=== PATIENT | male | born 1960 | race African-American/Black ===

== ENCOUNTER 2021-08-05 05:52 | Inpatient (IN) ==
[2021-07-29 11:54] LABS: Basophils % 0.6 % (0.0-0.8); Eosinophils # 0.5 10*3/uL (0.0-0.87); Eosinophils % 8.1 % (0.00-10.9); Hematocrit 48.5 VOL% (42.0-52.0); Immature Granulocytes % 0.3 %; Immature Granulocytes Absolute 0.02 #; Lymphocytes # 1.5 10*3/uL (1.4-4.0); Lymphocytes % 23.5 % (21.2-54.2); Mean Corpuscular Volume 90.7 FL (87-102); Monocytes # 0.6 10*3/uL (0.11-0.8); Monocytes % 8.8 % (1.7-12.7); Neutrophils % 58.7 % (38.7-73.9); Platelet Count 213 T/CUMM (130-400); Red Blood Count 5.35 MC/CUMM (3.8-5.5); Red Cell Distribution Width 14.4 % (9.3-17.3); White Blood Count 6.5 T/CUMM (4-12)
[2021-07-29 12:25] LABS: Bilirubin,Total 1.1 MG/DL (0.20-1.00); Calcium 9.7 MG/DL (8.5-10.1); Osmolality,Calculated 278.8 MOS/KG (273-304); Potassium 4.2 MMOL/L (3.5-5.1); Total Protein 7.6 G/DL (6.4-8.2)
[2021-08-05] MEDS ORDERED: LIDOCAINE 2% 5 ML VIAL ONE (06:28)
[2021-08-05] MEDS ORDERED: fentaNYL 100 MCG/2 ML VIAL ONE ×3 (06:28→11:28)
[2021-08-05] MEDS ORDERED: ROCURONIUM 50 MG/5 ML VIAL IV ONE ×2 (06:28→09:32)
[2021-08-05] MEDS ORDERED: propofoL 200 MG/20 ML VIAL IV ONE ×2 (06:28→11:48)
[2021-08-05] MEDS ORDERED: MIDAZOLAM 2 MG/2 ML VIAL ONE (06:29)
[2021-08-05] MEDS ORDERED: ALVIMOPAN 12 MG CAPSULE PO ONE (06:30)
[2021-08-05] MEDS ORDERED: DEXAMETHASONE 4 MG/1 ML VIAL ONE ×2 (06:31→07:45)
[2021-08-05] MEDS ORDERED: LIDOCAINE 1% 5 ML VIAL ONE (06:31)
[2021-08-05] MEDS ORDERED: ROPIVACAINE 0.5% 30 ML VIAL ONE ×2 (06:31→06:42)
[2021-08-05] MEDS ORDERED: GABAPENTIN 400 MG CAPSULE PO ONE (06:38)
[2021-08-05] MEDS ORDERED: FAMOTIDINE 20 MG TABLET PO ONE (06:38)
[2021-08-05] MEDS ORDERED: DIAZEPAM 5 MG TABLET PO ONE (06:38)
[2021-08-05] MEDS ORDERED: ACETAMINOPHEN 500 MG TABLET PO ONE (06:38)
[2021-08-05] MEDS ORDERED: FAMOTIDINE 20 MG/2 ML VIAL IV ONE (06:51)
[2021-08-05] MEDS ORDERED: ALBUTEROL 2.5 MG/3 ML NEB RESP TX ONE (06:51)
[2021-08-05] MEDS ORDERED: ACETAMINOPHEN INJ 1,000 MG/100 ML VIAL IV ONE (06:57)
[2021-08-05] MEDS ORDERED: cefTRIAXone 1,000 MG in SODIUM CHLORIDE 0.9% 100 ML IV ONE (07:00)
[2021-08-05] MEDS: LACTATED RINGERS 1,000 ML IV SCH ×3 (07:30→14:14)
[2021-08-05] MEDS ORDERED: SEVOFLURANE 1 UNIT/15 MINUTE INH ONE ×11 (07:45→11:18)
[2021-08-05] MEDS ORDERED: ONDANSETRON 4 MG/2 ML VIAL ONE ×2 (07:45→09:47)
[2021-08-05] MEDS ORDERED: GLYCOPYRROLATE 0.4 MG/2 ML VIAL ONE (08:06)
[2021-08-05] MEDS ORDERED: LACTATED RINGERS 1,000 ML IV ONE (08:09)
[2021-08-05 08:29] LABS: Mucus,Urine Occasional /LPF (Occasional); RBC,Urine 12 /HPF (0-4)
[2021-08-05 08:30] LABS: Bilirubin,Urine Negative (Negative); Blood, Urine Small mg/dL (Negative); Glucose,Urine (UA) Negative (Negative); Ketones,Urine Negative (Negative); Nitrite,Urine Negative (Negative); Protein,Urine Negative (Negative); Urine Appearance Clear (Clear); Urine Color Yellow (Yellow); Urine Specific Gravity > 1.030 (1.001-1.035); Urine Urobilinogen 0.2 eU/dL (<2.0); Urine pH 5.5 (4.5-8.0)
[2021-08-05] MEDS ORDERED: SUGAMMADEX 200 MG/2 ML VIAL IV ONE (09:47)
[2021-08-05] MEDS ORDERED: LACTULOSE 20 GM/30 ML UDCUP PO PRN (11:43)
[2021-08-05] MEDS ORDERED: HYDROmorphone 1 MG/1 ML SYRINGE IV PRN (11:43)
[2021-08-05] MEDS ORDERED: ONDANSETRON 4 MG/2 ML VIAL IV PRN ×2 (11:43→12:21)
[2021-08-05] MEDS ORDERED: PROMETHAZINE 25 MG/1 ML VIAL IM PRN (11:43)
[2021-08-05] MEDS ORDERED: diphenhydrAMINE 50 MG/1 ML VIAL IV PRN (11:43)
[2021-08-05] MEDS ORDERED: SIMETHICONE CHEW 125 MG TABLET PO PRN (11:43)
[2021-08-05] MEDS ORDERED: NON-FORMULARY MEDICATION (Albuterol Sulfate [Proair Hfa] 90 MCG/PUFF HFA aerosol inhaler) INH PRN (11:46)
[2021-08-05] MEDS ORDERED: ALBUTEROL 2.5 MG/3 ML NEB RESP TX PRN (11:47)
[2021-08-05] MEDS ORDERED: MEPERIDINE 25 MG/1 ML VIAL ONE (12:13)
[2021-08-05] MEDS: HYDROmorphone 1 MG/1 ML SYRINGE IV PRN ×2 (12:20→12:30)
[2021-08-05] MEDS ORDERED: MEPERIDINE 25 MG/1 ML VIAL IV PRN (12:21)
[2021-08-05] MEDS ORDERED: cefTRIAXone 1,000 MG in SODIUM CHLORIDE 0.9% 100 ML IV SCH (12:30)
[2021-08-05] MEDS ORDERED: hydrALAZINE 20 MG/1 ML VIAL ONE (12:34)
[2021-08-05 13:55] LABS: Basophils % 0.2 % (0.0-0.8); Eosinophils # 0.1 10*3/uL (0.0-0.87); Eosinophils % 0.6 % (0.00-10.9); Hematocrit 45.1 VOL% (42.0-52.0); Hemoglobin 15.1 GM/DL (14.0-18.0); Immature Granulocytes % 0.6 %; Immature Granulocytes Absolute 0.08 #; Lymphocytes # 1.4 10*3/uL (1.4-4.0); Mean Corpuscular HGB Conc 33.5 GM/DL (32-36); Mean Corpuscular Volume 90.2 FL (87-102); Mean Platelet Volume 10.3 FL (9.6-12.0); Monocytes # 0.4 10*3/uL (0.11-0.8); Monocytes % 3.3 % (1.7-12.7); Neutrophils % 84.3 % (38.7-73.9); Platelet Count 227 T/CUMM (130-400); Red Cell Distribution Width 14.2 % (9.3-17.3); White Blood Count 12.8 T/CUMM (4-12)
[2021-08-05 14:03] LABS: Calcium 9.1 MG/DL (8.5-10.1); Osmolality,Calculated 280.2 MOS/KG (273-304); Potassium 4.1 MMOL/L (3.5-5.1)
[2021-08-05] MEDS: ACETAMINOPHEN 325 MG TABLET PO SCH ×2 (14:15→18:23)
[2021-08-05] MEDS ORDERED: PHENOL 1.4% THROAT SPRAY 177 ML BOTTLE PO PRN (14:29)
[2021-08-05] MEDS: hydrALAZINE 25 MG TABLET PO SCH ×2 (15:50→20:32)
[2021-08-05] MEDS: OXYBUTYNIN 5 MG TABLET PO SCH ×2 (15:51→20:32)
[2021-08-05] MEDS ORDERED: GLUCAGON 1 MG VIAL IM PRN (16:02)
[2021-08-05] MEDS ORDERED: DEXTROSE 10% 250 ML BAG IV PRN (16:06)
[2021-08-05] MEDS: oxyCODONE/ACETAMINOPHEN 5-325 MG TABLET PO PRN (16:12)
[2021-08-05] MEDS: INSULIN LISPRO 100 UNIT/ML SUBCUT SCH ×2 (17:10→20:32)
[2021-08-05] MEDS: SODIUM CHLORIDE 0.9% 1,000 ML IV SCH (17:11)
[2021-08-05] MEDS: MONTELUKAST 10 MG TABLET PO SCH (20:32)
[2021-08-05] MEDS: DOCUSATE SODIUM 100 MG CAPSULE PO SCH (20:32)
[2021-08-05] MEDS: BUDESONIDE/FORMOTEROL 160-4.5 INHALER 6 GM INH SCH (20:34)
[2021-08-06] MEDS: ACETAMINOPHEN 325 MG TABLET PO SCH ×5 (00:44→23:16)
[2021-08-06] MEDS: SODIUM CHLORIDE 0.9% 1,000 ML IV SCH ×2 (01:00→07:34)
[2021-08-06 04:38] LABS: Eosinophils % 0.2 % (0.00-10.9); Immature Granulocytes % 0.4 %; Immature Granulocytes Absolute 0.03 #; Lymphocytes # 1.1 10*3/uL (1.4-4.0); Lymphocytes % 12.5 % (21.2-54.2); Mean Corpuscular HGB Conc 32.5 GM/DL (32-36); Mean Corpuscular Volume 91.7 FL (87-102); Mean Platelet Volume 10.1 FL (9.6-12.0); Monocytes # 0.9 10*3/uL (0.11-0.8); Monocytes % 10.3 % (1.7-12.7); Neutrophils % 76.6 % (38.7-73.9); Platelet Count 187 T/CUMM (130-400); Red Blood Count 4.36 MC/CUMM (3.8-5.5); Red Cell Distribution Width 14.3 % (9.3-17.3); White Blood Count 8.4 T/CUMM (4-12)
[2021-08-06 04:56] LABS: Calcium 8.4 MG/DL (8.5-10.1); Osmolality,Calculated 277.8 MOS/KG (273-304)
[2021-08-06] MEDS: PANTOPRAZOLE 40 MG TABLET PO SCH (05:43)
[2021-08-06] MEDS: INSULIN LISPRO 100 UNIT/ML SUBCUT SCH ×4 (07:30→20:53)
[2021-08-06] MEDS: cefTRIAXone 1,000 MG in SODIUM CHLORIDE 0.9% 100 ML IV SCH (08:36)
[2021-08-06] MEDS: hydrALAZINE 25 MG TABLET PO SCH ×3 (08:39→20:51)
[2021-08-06] MEDS: ATORVASTATIN 40 MG TABLET PO SCH (08:39)
[2021-08-06] MEDS: DOCUSATE SODIUM 100 MG CAPSULE PO SCH ×2 (08:39→20:51)
[2021-08-06] MEDS: OXYBUTYNIN 5 MG TABLET PO SCH ×3 (08:39→20:51)
[2021-08-06] MEDS: carvediloL 12.5 MG TABLET PO SCH (08:39)
[2021-08-06] MEDS: oxyCODONE/ACETAMINOPHEN 5-325 MG TABLET PO PRN ×2 (08:41→23:15)
[2021-08-06] MEDS: BUDESONIDE/FORMOTEROL 160-4.5 INHALER 6 GM INH SCH ×2 (09:12→20:53)
[2021-08-06] MEDS: FLUTICASONE 50 MCG NASAL SPRAY 16 GM BOTTLE BOTH NARES SCH (12:02)
[2021-08-06 14:02] LABS: % Iron Saturation 16.5 % (18-50)
[2021-08-06 14:14] LABS: Folate 8.47 NG/ML (5.38-24.0)
[2021-08-06] MEDS: MONTELUKAST 10 MG TABLET PO SCH (20:50)
[2021-08-06] MEDS: ALVIMOPAN 12 MG CAPSULE PO SCH (20:51)
[2021-08-07] MEDS: ACETAMINOPHEN 325 MG TABLET PO SCH ×3 (05:28→18:31)
[2021-08-07] MEDS: PANTOPRAZOLE 40 MG TABLET PO SCH (05:32)
[2021-08-07 06:14] LABS: Basophils % 0.3 % (0.0-0.8); Eosinophils # 0.2 10*3/uL (0.0-0.87); Eosinophils % 2.1 % (0.00-10.9); Hematocrit 39.9 VOL% (42.0-52.0); Immature Granulocytes % 0.4 %; Immature Granulocytes Absolute 0.03 #; Lymphocytes # 1.2 10*3/uL (1.4-4.0); Mean Corpuscular HGB Conc 32.6 GM/DL (32-36); Mean Corpuscular Volume 92.6 FL (87-102); Mean Platelet Volume 10.2 FL (9.6-12.0); Monocytes # 0.8 10*3/uL (0.11-0.8); Monocytes % 10.6 % (1.7-12.7); Neutrophils % 71.6 % (38.7-73.9); Platelet Count 176 T/CUMM (130-400); Red Blood Count 4.31 MC/CUMM (3.8-5.5); Red Cell Distribution Width 14.4 % (9.3-17.3); White Blood Count 7.9 T/CUMM (4-12)
[2021-08-07 06:33] LABS: Calcium 9.1 MG/DL (8.5-10.1); Osmolality,Calculated 279.5 MOS/KG (273-304); Potassium 3.8 MMOL/L (3.5-5.1)
[2021-08-07 06:39] LABS: Risk Ratio 2.75; VLDL Cholesterol 20.2 MG/DL
[2021-08-07] MEDS ORDERED: BISACODYL 10 MG SUPP RECTAL ONE (07:30)
[2021-08-07] MEDS: OXYBUTYNIN 5 MG TABLET PO SCH ×2 (08:58→16:03)
[2021-08-07] MEDS: carvediloL 12.5 MG TABLET PO SCH (08:59)
[2021-08-07] MEDS: cefTRIAXone 1,000 MG in SODIUM CHLORIDE 0.9% 100 ML IV SCH (08:59)
[2021-08-07] MEDS: ALVIMOPAN 12 MG CAPSULE PO SCH (08:59)
[2021-08-07] MEDS: DOCUSATE SODIUM 100 MG CAPSULE PO SCH (08:59)
[2021-08-07] MEDS: ATORVASTATIN 40 MG TABLET PO SCH (08:59)
[2021-08-07] MEDS: hydrALAZINE 25 MG TABLET PO SCH ×2 (08:59→16:03)
[2021-08-07] MEDS: BUDESONIDE/FORMOTEROL 160-4.5 INHALER 6 GM INH SCH (09:05)
[2021-08-07] MEDS: FLUTICASONE 50 MCG NASAL SPRAY 16 GM BOTTLE BOTH NARES SCH (09:05)
[2021-08-07] MEDS: INSULIN LISPRO 100 UNIT/ML SUBCUT SCH ×3 (09:05→15:40)
[2021-08-07] MEDS: oxyCODONE/ACETAMINOPHEN 5-325 MG TABLET PO PRN (09:06)
[2021-08-07] MEDS ORDERED: CHOLECALCIFEROL 5,000 UNIT TABLET PO SCH (10:30)
[2021-08-07] MEDS: FERROUS SULFATE 325 MG TABLET PO SCH ×2 (11:18→16:03)
[2021-08-07 19:28] VITALS: BP 123/71
== END 2021-08-07 21:00 | disposition home health service (06) | DRG 708 ==
LOC: N.OR 05:52 → N.SDSINP 05:53 → N.3E 13:27
PROVIDERS: ADMIT Surgery; ATTEND Surgery